=== PATIENT | female | born 1975 | race Caucasian/White ===

== ENCOUNTER 2018-08-04 07:08 | Emergency (ER) | payer OTHER ==
[2018-08-04] MEDS ORDERED: Ibuprofen 800 MG TAB ONE (07:24)
[2018-08-04] MEDS ORDERED: Lidocaine 1% (PF) 30 ML VIAL ONE (07:30)
--- NOTE | 2018-08-04 08:19 | RAD ---
RADIOGRAPH RIGHT HAND 3 VIEWS: DATE: 08/04/2018. TIME: 7:31 a.m. HISTORY: A 43-year-old female status post acute traumatic injury to the right hand. FINDINGS: There is a comminuted fracture with mild displacement at the base of the 5th proximal phalanx, with m oderate dorsal angulation of distal fragment. There is no disruption of the articular surface of the 5th MCP. No dislocation. IMPRESSION: Acute, traumatic, mildly comminuted, displaced and angulated fracture of the proximal metaphysis of t he 5th proximal phalanx. POS: [facility]
== END 2018-08-04 09:07 | disposition home or self-care (01) ==
LOC: ERS 07:08
DX: S62.616A Displaced fracture of proximal phalanx of right little finger, initial encounter for closed fracture (principal); S61.216A Laceration without foreign body of right little finger without damage to nail, initial encounter; J45.909 Unspecified asthma, uncomplicated; W19.XXXA Unspecified fall, initial encounter
CPT/HCPCS: 26605; J2001

== ENCOUNTER 2020-05-13 11:16 | Outpatient (CLI) | payer OTHER ==
--- NOTE | 2020-06-11 11:32 | MMO ---
Bilateral MAMMO Bilat Screen [facility]. CLINICAL HISTORY: Patient is 44 years old and is seen for screening. The patient has the following family history of breast cancer: maternal grandmother. The patient has no personal history of cancer. VIEWS: The views performed were: bilateral craniocaudal with tomosynthesis and bilateral mediolateral oblique with tomosynthesis. This study has been interpreted with the assistance of computer-aided detection. MAMMOGRAM FINDINGS: The breasts are heterogeneously dense, which could obscure a lesion on mammography. Benign calcifications are noted bilaterally. There are no suspicious masses, suspicious calcifications, or new areas of architectural distortion. IMPRESSION: THERE IS NO MAMMOGRAPHIC EVIDENCE OF MALIGNANCY. A ROUTINE FOLLOW-UP MAMMOGRAM IN 1 YEAR IS RECOMMENDED. THE RESULTS OF THIS EXAM WERE SENT TO THE PATIENT. ACR BI-RADS Category 2 - Benign finding MAMMOGRAPHY NOTE: 1. A negative mammogram report should not delay a biopsy if a dominant of clinically suspicious mass is present. 2. Approximately 10% to 15% of breast cancers are not detected by mammography. 3. Adenosis and dense breasts may obscure an underlying neoplasm. Reported by: LEANN SEGURA MD Electonically Signed: [id number]
== END 2020-05-13 11:17 | disposition home or self-care (01) ==
LOC: BICMAMMO 11:16
PROVIDERS: ATTEND Family Medicine
DX: Z12.31 Encounter for screening mammogram for malignant neoplasm of breast (principal); Z80.3 Family history of malignant neoplasm of breast
CPT/HCPCS: 77063; 77067